=== PATIENT | female | born 1965 | race Caucasian/White ===

== ENCOUNTER 2016-11-28 16:28 | Inpatient (IN) | payer OTHER ==
[~2016-11-28] VITALS: Ht 160 cm; Wt 79.6 kg
[2016-11-28 17:56] LABS: HEMATOCRIT 41.6 % (36.0-46.0); MCH 28.6 PG (29.0-34.0); MCHC 34.1 G/DL (30.0-36.0); MCV 83.7 FL (83-99); MEAN PLAT.VOLUME 10.1 uM^3 (9.5-12.4); PLATELET COUNT 278 K/uL (156-360); RBC DIS.WIDTH-CV 13.2 % (11.8-14.6); RBC DIS.WIDTH-SD 40.1 % (39-53); RED BLOOD COUNT 4.97 M/uL (3.80-5.20); WHITE BLOOD COUNT 14.5 K/uL (4.1-10.2)
[2016-11-28 18:14] LABS: CHLORIDE 105 mEq/L (99-109); SODIUM 137 mEq/L (136-147)
[2016-11-28 18:16] LABS: GLUCOSE 184 mg/dL (70-99)
[2016-11-28 18:17] LABS: ANION GAP 12 MEQ/L (2-14)
[2016-11-28 18:19] LABS: SERUM ETHYL ALCOHOL < 10 mg/dL
[2016-11-28 18:20] LABS: GFR ESTIMATE (CALCULATED) > 59 mL/min/
[2016-11-28 18:22] LABS: UREA NITROGEN (BUN) 16 mg/dL (9-23)
[2016-11-28 18:23] LABS: SALICYLATE < 5.0 MG/DL (15-30)
[2016-11-28 18:30] LABS: AMPHETAMINE NEGATIVE (500 ng/mL); BARBITURATES NEGATIVE (200 ng/mL); BENZODIAZEPINES NEGATIVE (150 ng/mL); COCAINE NEGATIVE (150 ng/mL); INTERNAL CONTROLS VALID? YES; METHADONE NEGATIVE (200 ng/mL); METHAMPHETAMINE NEGATIVE (500 ng/mL); OPIATES (MORPHINE) PRESUMPTIVE POSITIVE (100 ng/mL); OXYCODONE NEGATIVE (100 ng/mL); PHENCYCLIDINE NEGATIVE (25 ng/mL); PROPOXYPHENE NEGATIVE (300 ng/mL); THC CANNABINOIDS NEGATIVE (50 ng/mL); TRICYCLIC ANTIDEPRESSANTS NEGATIVE (300 ng/mL)
[2016-11-28 18:31] LABS: ADD MEDTOX COMMENT Y
[2016-11-28] MEDS ORDERED: KLONOPIN0.5 M1 PO (19:03)
[2016-11-28] MEDS ORDERED: AMBIEN10 MG PO (19:04)
[2016-11-28] MEDS ORDERED: JANUVIA25 M1 PO (19:04)
[2016-11-28] MEDS ORDERED: PROMETHAZINE HC25 M1 PO (19:05)
[2016-11-28] MEDS ORDERED: DESYREL 150 MG150 MG PO (19:05)
[2016-11-28] MEDS ORDERED: TOPAMAX25 MG PO (19:06)
[2016-11-28] MEDS ORDERED: WELLBUTRIN XL300 MG PO (19:07)
[2016-11-28] MEDS ORDERED: LANTUS 3 M100 UNITS1 SC (19:08)
[2016-11-28] MEDS ORDERED: ATORVASTATIN CA20 MG PO (19:09)
[2016-11-28] MEDS ORDERED: LISINOPRIL10 MG PO (19:10)
[2016-11-28] MEDS ORDERED: LORAZEPAM0.5 MG PO (19:11)
[2016-11-28] MEDS ORDERED: VICOPROFEN1 TABLET PO (19:11)
[2016-11-28] MEDS ORDERED: ADVIL200 MG PO (19:12)
[2016-11-28] MEDS ORDERED: FARXIGA10 MG PO (19:12)
[2016-11-28] MEDS ORDERED: VITAMIN D-32000 UNI2 PO (19:13)
[2016-11-28] MEDS ORDERED: ANTIVERT12.5 MG PO (19:14)
[2016-11-28 19:58] VITALS: BP 123/75
[2016-11-29 08:01] VITALS: BP 102/64
[2016-11-29 15:48] VITALS: BP 113/74
[2016-11-29 17:37] LABS: POINT-OF-CARE METER ID UU13113830
[2016-11-29 21:26] LABS: POINT-OF-CARE METER ID UU13113830; POINT-OF-CARE USER ID BHSMEW
[2016-11-30 06:09] LABS: POINT-OF-CARE METER ID UU13113830; POINT-OF-CARE USER ID BHSMEW
[2016-11-30 08:01] VITALS: BP 108/63
[2016-11-30 10:03] LABS: Estimated Average Glucose 243 mg/dL (70-123); HEMOGLOBIN A1c (GLYCOHEMOGLOB) 10.1 % HGB (Below 5.7)
[2016-11-30 15:17] VITALS: BP 108/63
[2016-11-30 16:41] LABS: POINT-OF-CARE METER ID UU13113830
[2016-11-30 22:04] LABS: POINT-OF-CARE METER ID UU13113830
[2016-12-01 06:27] LABS: POINT-OF-CARE METER ID UU13113830; POINT-OF-CARE USER ID BHSSMG
[2016-12-01 07:39] VITALS: BP 99/58
[2016-12-01 11:32] VITALS: BP 122/70
[2016-12-01 12:20] LABS: POINT-OF-CARE METER ID UU13113830; POINT-OF-CARE USER ID BHSTSA
[2016-12-01 15:13] VITALS: BP 144/53
[2016-12-01 17:01] LABS: POINT-OF-CARE METER ID UU13113830
[2016-12-01 19:37] VITALS: BP 119/72
[2016-12-01 21:15] LABS: POINT-OF-CARE METER ID UU13113830
[2016-12-02 06:22] LABS: POINT-OF-CARE METER ID UU13113830; POINT-OF-CARE USER ID ENVTLS63
[2016-12-02 09:08] VITALS: BP 107/64
[2016-12-02 12:29] LABS: POINT-OF-CARE METER ID UU13113830; POINT-OF-CARE USER ID HRSENV50
[2016-12-02 15:24] VITALS: BP 102/59
[2016-12-02 16:55] LABS: POINT-OF-CARE METER ID UU13113830
[2016-12-02 18:24] LABS: POINT-OF-CARE METER ID UU13113830
[2016-12-02 20:49] LABS: POINT-OF-CARE METER ID UU13113830
[2016-12-03 06:14] LABS: POINT-OF-CARE METER ID UU13113830; POINT-OF-CARE USER ID ENVTLS63
[2016-12-03 07:51] VITALS: BP 97/60
[2016-12-03] MEDS ORDERED: NOVOLOG PE100 UNITS/ SC (09:29)
[2016-12-03] MEDS ORDERED: LEVEMIR100 UNIT/2 SC (09:29)
[2016-12-03 12:15] LABS: POINT-OF-CARE METER ID UU13113830
== END 2016-12-03 12:55 | disposition home or self-care (01) | DRG 885 ==
LOC: EME 16:28 → EDOF 18:39 → 1WEST 18:39
PROVIDERS: Emergency Medicine; Nurse Practitioner Family; Psychiatry & Neurology Psychiatry
DX: F31.4 Bipolar disorder, current episode depressed, severe, without psychotic features (principal); E11.65 Type 2 diabetes mellitus with hyperglycemia; Z79.4 Long term (current) use of insulin; Z79.84 Long term (current) use of oral hypoglycemic drugs; I10 Essential (primary) hypertension; E78.5 Hyperlipidemia, unspecified; E55.9 Vitamin D deficiency, unspecified; F41.9 Anxiety disorder, unspecified; F12.90 Cannabis use, unspecified, uncomplicated; F40.00 Agoraphobia, unspecified; F17.210 Nicotine dependence, cigarettes, uncomplicated
CPT/HCPCS: 80048; 82948; 83036; 84999; 85027; 90839; 97150 GO; 97166 GO; 97530 GO; 99281; 99285; G0480; J1815